=== PATIENT | female | born 1985 | race Caucasian/White ===

== ENCOUNTER 2016-12-25 11:35 | Emergency (ER) | payer SELFPAY ==
[~2016-12-25] VITALS: Ht 165.1 cm; Wt 95.0 kg
[2016-12-25 12:30] VITALS: BP 112/67
[2016-12-25] MEDS ORDERED: ALPRAZOLAM 0.25 MG TABLET PO ONE (12:30)
== END 2016-12-25 14:59 | disposition home or self-care (01) ==
LOC: ER 14:46
DX: R07.89 Other chest pain (principal); F45.8 Other somatoform disorders
CPT/HCPCS: 82962; 93005; 99283

== ENCOUNTER 2018-10-10 22:56 | Emergency (ER) | payer MEDICAID ==
[~2018-10-10] VITALS: Ht 165.1 cm; Wt 109.0 kg
[2018-10-11 01:59] LABS: CHLORIDE 105 mEq/L (98-107)
[2018-10-11 05:36] VITALS: BP 117/58
== END 2018-10-11 05:39 | disposition home or self-care (01) ==
LOC: ER 22:56
DX: I82.512 Chronic embolism and thrombosis of left femoral vein (principal)
CPT/HCPCS: 36415; 80048; 93970; 99284; Z7610

== ENCOUNTER 2019-02-16 06:26 | Emergency (ER) | payer MEDICAID ==
[~2019-02-16] VITALS: Ht 165.1 cm; Wt 109.9 kg
[2019-02-16] MEDS ORDERED: KETOROLAC 30MG/ML VIAL IV STA (07:15)
[2019-02-16 07:25] LABS: CLARITY URINE CLEAR (CLEAR); COLOR URINE YELLOW (YELLOW); KETONES URINE TRACE (NEGATIVE); LEUKOCYTE ESTERASE URINE TRACE (NEGATIVE); NITRITE URINE NEGATIVE (NEGATIVE); OCCULT BLOOD URINE 1+ (NEGATIVE); PROTEIN URINE NEGATIVE (NEGATIVE); SPECIFIC GRAVITY URINE 1.035 (1.005-1.030); UROBILINOGEN URINE 0.2 E.U./dL (0.2-1.0)
[2019-02-16 07:50] LABS: BASOPHILS % 0.6 % (0.0-2.0); HEMATOCRIT. 36.7 % (36.0-48.0); HEMOGLOBIN. 12.3 g/dL (12.0-16.0); LYMPHOCYTES % 20.8 % (20.0-50.0); MEAN CORPUSCULAR VOLUME 86.3 fL (81.0-99.0); MEAN PLATELET VOLUME 7.7 fl (7.4-10.4); MONOCYTES % 11.5 % (2.0-8.0); NEUTROPHILS % 66.1 % (40.0-76.0); PLATELET 256 x1000/uL (130-400); RED BLOOD CELL COUNT 4.25 mill/uL (4.2-5.4); RED CELL DISTRIBUTION WIDTH 14.5 % (11.6-14.6)
[2019-02-16 07:53] LABS: CHLORIDE 107 mEq/L (98-107)
[2019-02-16 09:44] VITALS: BP 98/58
== END 2019-02-16 09:45 | disposition home or self-care (01) ==
LOC: ER 06:26
DX: R07.89 Other chest pain (principal); R03.0 Elevated blood-pressure reading, without diagnosis of hypertension
CPT/HCPCS: 36415; 71045; 80053; 81003; 81025; 85025; 96374; 99284; J1885; Z7610

== ENCOUNTER 2019-11-22 23:28 | Emergency (ER) | payer MEDICAID ==
[~2019-11-22] VITALS: Ht 165.1 cm; Wt 107.0 kg
[2019-11-22 23:37] VITALS: BP 131/48
[2019-11-23] MEDS ORDERED: ACETAMINOPHEN WITH CODEINE 300/30MG TABLET PO ONE
== END 2019-11-23 02:28 | disposition home or self-care (01) ==
LOC: ER 23:28
DX: M79.89 Other specified soft tissue disorders (principal); M54.31 Sciatica, right side; Z98.890 Other specified postprocedural states
CPT/HCPCS: 93971; 99284

== ENCOUNTER 2020-03-20 19:19 | Emergency (ER) | payer MEDICAID ==
[~2020-03-20] VITALS: Ht 165.1 cm; Wt 113.0 kg
[2020-03-20 21:12] VITALS: BP 104/66
[2020-03-20] MEDS ORDERED: ACETAMINOPHEN WITH CODEINE 300/30MG TABLET PO ONE (21:15)
== END 2020-03-20 21:36 | disposition home or self-care (01) ==
LOC: ER 19:19
DX: M25.522 Pain in left elbow (principal); Z98.890 Other specified postprocedural states
CPT/HCPCS: 99282; 99283; A4565

== ENCOUNTER 2020-08-08 23:10 | Emergency (ER) | payer MEDICAID ==
[~2020-08-08] VITALS: Ht 165.1 cm; Wt 119.0 kg
[2020-08-09 00:32] LABS: BASOPHILS % 0.7 % (0.0-2.0); EOSINOPHILS % 0.7 % (0.0-5.0); HEMATOCRIT. 33.3 % (36.0-48.0); HEMOGLOBIN. 11.2 g/dL (12.0-16.0); LYMPHOCYTES % 27.6 % (20.0-50.0); MEAN CORPUSCULAR HEMOGLOBIN 28.9 pg (28.0-32.0); MEAN CORPUSCULAR VOLUME 85.6 fL (81.0-99.0); MEAN PLATELET VOLUME 7.3 fl (7.4-10.4); MONOCYTES % 11.4 % (2.0-8.0); NEUTROPHILS % 59.6 % (40.0-76.0); PLATELET 277 x1000/uL (130-400); RED BLOOD CELL COUNT 3.89 mill/uL (4.2-5.4); RED CELL DISTRIBUTION WIDTH 14.6 % (11.6-14.6)
[2020-08-09 00:38] LABS: CHLORIDE 106 mEq/L (98-107)
[2020-08-09 01:08] LABS: CLARITY URINE CLEAR (CLEAR); COLOR URINE YELLOW (YELLOW); KETONES URINE NEGATIVE (NEGATIVE); LEUKOCYTE ESTERASE URINE NEGATIVE (NEGATIVE); NITRITE URINE NEGATIVE (NEGATIVE); OCCULT BLOOD URINE 1+ (NEGATIVE); PH URINE 6.5 (4.5-8.0); PROTEIN URINE NEGATIVE (NEGATIVE); SPECIFIC GRAVITY URINE 1.008 (1.005-1.030)
[2020-08-09 01:16] LABS: INR 0.9; PARTIAL THROMBOPLASTIN TIME 28.1 sec (23.4-31.0); PROTHROMBIN TIME 10.2 sec (9.6-11.0)
[2020-08-09 02:47] VITALS: BP 126/77
== END 2020-08-09 02:48 | disposition home or self-care (01) ==
LOC: ER 23:10
DX: R23.3 Spontaneous ecchymoses (principal); Z98.890 Other specified postprocedural states
CPT/HCPCS: 36415; 80053; 81003; 81025; 85025; 99283

== ENCOUNTER 2020-08-12 12:25 | Emergency (ER) | payer MEDICAID ==
[~2020-08-12] VITALS: Ht 165.1 cm; Wt 118.0 kg
[2020-08-12] MEDS ORDERED: ACETAMINOPHEN WITH CODEINE 300/30MG TABLET PO ONE (13:30)
[2020-08-12 15:04] VITALS: BP 111/75
== END 2020-08-12 15:05 | disposition home or self-care (01) ==
LOC: ER 12:25
DX: I80.02 Phlebitis and thrombophlebitis of superficial vessels of left lower extremity (principal); Z86.718 Personal history of other venous thrombosis and embolism
CPT/HCPCS: 76881; 99284

== ENCOUNTER 2024-01-07 17:26 | Emergency (ER) | payer MEDICAID, OTHER ==
[~2024-01-07] VITALS: Ht 165.1 cm; Wt 105.0 kg
[2024-01-07 17:30] VITALS: O2SAT 99
[2024-01-07 17:32] VITALS: BP 144/94; PULSE 74; TEMP 97.7; O2SAT 100
[2024-01-07 19:00] VITALS: RESP 16
[2024-01-07] MEDS ORDERED: CEL200 MT (19:08)
[2024-01-07] MEDS: IBUPROFEN 800MG TABLET PO ONE (20:10)
== END 2024-01-07 19:01 | disposition home or self-care (01) ==
LOC: ER 17:26
DX: M77.8 Other enthesopathies, not elsewhere classified (principal)
CPT/HCPCS: 99283